=== PATIENT | female | born 1945 | race Caucasian/White ===

== ENCOUNTER 2019-09-01 13:29 | Inpatient (IN) | payer MEDICARE, MEDICAID, SELFPAY ==
--- NOTE | ~2019-09-01 | XR_ITS ---
EXAMINATION: XR abdomen NG/feed tube insert DATE: 09/03/2019 06:37 INDICATION: Nasogastric tube placement. TECHNIQUE: An upright view of the abdomen was obtained. COMPARISON: CT abdomen and pelvis 09/01/2019 FINDINGS: The lower abdomen is excluded. There are mildly dilated loops of small bowel. The nasogastr ic tube tip is in the stomach. IMPRESSION: 1. Nasogastric tube tip in the stomach. 2. Mildly dilated small bowel, likely adynamic ileus. Reviewed, dictated and finalized at location A.
--- NOTE | ~2019-09-01 | XR_ITS ---
EXAMINATION: XR chest ET placement DATE: 09/03/2019 06:37 INDICATION: Intubation. TECHNIQUE: A single frontal view of the chest was obtained. COMPARISON: Chest 2 views 09/01/2019, chest CT 09/01/2019 FINDINGS: The patient is rotated to her left. There is a right perihilar mass. No pleural effusion or pneumothorax. Cardiomegaly is noted. There is a prominent left paracardial fat pad. The endotracheal tube tip is 4.2 cm above the kaya. The nasogastric tube tip is in the stomach. IMPRESSION: 1. Right perihilar mass, consistent with primary bronchogenic carcinoma. 2. Cardiomegaly. Reviewed, dictated and finalized at location A.
--- NOTE | ~2019-09-01 | CT_ITS ---
EXAMINATION: CT chest wo con DATE: 09/01/2019 18:50 INDICATION: Metastatic cancer TECHNIQUE: Computed tomography (CT) of the chest was performed without intravenous contrast. The dose -length product was 559.30 mGy-cm. Automated exposure control and iterative reconstruction technique were employed. COMPARISON: CT dated 09/01/2019 FINDINGS: There is mediastinal and right hilar lymphadenopathy. For instance right paratracheal lymph node measures 2.4 cm. There is scattered right pleural nodularity. No significant pleural or pericar dial effusion. There is a left adrenal mass. There is emphysema. There is a lobulated right lower lob e mass measuring 6 cm transverse x6.9 cm AP x3.8 cm craniocaudal, most likely primary bronchogenic ca rcinoma. There are several adjacent satellite nodules with rhonchal vascular nodularity. The previous ly described liver masses are not well-demonstrated without contrast, although there is nodularity to the liver surface. IMPRESSION: 1. Lobulated 6.9 cm right lower lobe mass, compatible with bronchogenic carcinoma until proven otherw ise. There are probable metastases to the mediastinum, right hilum, right pleural surface, liver, lef t adrenal gland as well as possible local spread of tumor. Reviewed, dictated and finalized at location A. IMPRESSION: 1. Lobulated 6.9 cm right lower lobe mass, compatible with bronchogenic carcino ma until proven otherwise. There are probable metastases to the mediastinum, ri ght hilum, right pleural surface, liver, left adrenal gland as well as possible local spread of tumor.
--- NOTE | ~2019-09-01 | XR_ITS ---
XR chest 2V 09/01/2019 17:43 Indication: Metastatic disease. History of COPD. Dyspnea. Procedure: AP and lateral views of the chest Comparison: 03/25/2012 Findings: There is consolidation in the right perihilar region as well as the retrocardiac space. Car diomegaly. No pleural effusion or pneumothorax. No acute osseous abnormality. There is atherosclerosi s. Impression: 1: Opacification of the right perihilar and left basilar locations which may represent atelectasis, s carring and/or pneumonia. Reviewed, dictated and finalized at location A. Impression: 1: Opacification of the right perihilar and left basilar locations which may re present atelectasis, scarring and/or pneumonia.
--- NOTE | ~2019-09-01 | CT_ITS ---
EXAMINATION: CT brain wo con DATE: 09/01/2019 16:46 INDICATION: Left facial numbness. TECHNIQUE: Computed tomography (CT) of the head was performed without intravenous contrast. The mA wa s adjusted according to patient size. Iterative reconstruction technique was employed. The dose-lengt h product was 605.33 mGy-cm. COMPARISON: None FINDINGS: There is no intracranial hemorrhage, acute infarction, or abnormal intracranial mass lesion . There is an old lacunar infarct in right caudate nucleus. There are scattered areas of low attenuat ion in the cerebral white matter, which is within normal limits for the patient's age. The ventricles are normal in size. There are likely changes of ocular lens replacement surgeries. There is mild muc osal thickening in the paranasal sinuses. There is sclerosis of the higgin[place] of the left frontal sinus, consistent with chronic sinusitis. The mastoid air cells are normal. IMPRESSION: 1. Old lacunar infarct in right caudate nucleus. Reviewed, dictated and finalized at location A.
--- NOTE | ~2019-09-01 | CT_ITS ---
EXAMINATION: CT abdomen pelvis w con DATE: 09/01/2019 16:47 INDICATION: Abdominal pain. TECHNIQUE: Computed tomography (CT) of the abdomen and pelvis was performed with 100 mL Omnipaque 350 intravenous contrast. Automated exposure control and iterative reconstruction technique were employe d. The dose-length product was 1406.67 mGy-cm. COMPARISON: None. FINDINGS: The visualized portions of the lung bases demonstrate mild atelectasis. There is nodular pl eural thickening in right hemithorax, consistent with metastatic disease. No pleural effusion. Cardio megaly is noted. There are coronary artery calcifications. No pericardial effusion. Right hilar lymph adenopathy is noted, consistent with metastatic disease. There are innumerable masses throughout the liver, consistent with metastatic disease. Calcifications in the liver consistent with old granulomat ous disease. The spleen is normal. The gallbladder is absent. There are 2 cystic lesions in the body of the pancreas with the larger measuring 1.5 cm, probably benign. There are masses in the adrenal gl ands measuring up to 2.3 cm on the left. 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 There is cortical thinning of the kidneys. There are masses in the kidneys jessica suring soft tissue attenuation measuring up to 1.7 cm on right kidney. The endometrial complex is thi ckened to 1.7 cm. There are fibroids in the uterus measuring up to 1.8 cm. There are no dilated loops of bowel. The appendix is not visualized. There is mild mesenteric and periportal lymphadenopathy. T here are scattered subcutaneous mass of the body wall measuring up to 16 x 11 mm in right flank. Ther e is moderate lumbar spondylosis. IMPRESSION: 1. Innumerable liver masses, right pleural nodularity, right hilar lymphadenopathy, abdominal lymphad enopathy, and body wall masses, consistent with metastatic disease. Ultrasound-guided core needle bio psy of a liver mass is recommended. 2. Masses in the kidneys, which may be hemorrhagic cysts and/or metastatic disease. 3. Adrenal masses, which may be adenomas and/or metastatic disease. 4. Thickening of the endometrial complex suspicious for endometrial carcinoma. Reviewed, dictated and finalized at location A. IMPRESSION: 1. Innumerable liver masses, right pleural nodularity, right hilar lymphadenopa thy, abdominal lymphadenopathy, and body wall masses, consistent with metastati c disease. Ultrasound-guided core needle biopsy of a liver mass is recommended. 2. Masses in the kidneys, which may be hemorrhagic cysts and/or metastatic dise ase. 3. Adrenal masses, which may be adenomas and/or metastatic disease. 4. Thickening of the endometrial complex suspicious for endometrial carcinoma.
--- NOTE | ~2019-09-01 | US_ITS ---
EXAMINATION: US biopsy liver DATE: 09/02/2019 14:24 INDICATION: Innumerable hepatic nodules consistent with metastatic disease. TECHNIQUE: The procedure including the risks and benefits was discussed with the patient. Risks discu ssed included bleeding and infection. The patient understood the risks and agreed to proceed. The sk in overlying the left hepatic lobe was prepped and draped in usual sterile fashion. Anesthetic was a dministered with 1% lidocaine subcutaneously. An 18 gauge core biopsy needle was advanced under cont inuous ultrasound observation to the lesion of interest. 4 core biopsy specimens were obtained. The needle was removed and the entry site was cleaned and dressed. Post procedure ultrasound demonstrat ed no hemorrhage. FINDINGS: Ultrasound images demonstrate diffuse heterogeneous hepatic echogenicity with nodular surfa ce contour. Discrete nodules were unable to be identified. Subsequent images demonstrate biopsy needl es advanced into segment IVb of the liver where there was essentially confluent disease on the prior CT. IMPRESSION: 1. Successful Ultrasound-guided biopsy of the region of essentially confluent metastatic disease in s egment IVb of the liver. Reviewed, dictated and finalized at location A. IMPRESSION: 1. Successful Ultrasound-guided biopsy of the region of essentially confluent m etastatic disease in segment IVb of the liver.
[2019-09-01 14:52] VITALS: BP 112/60; PULSE 112; RESP 18; TEMP 36.8; O2SAT 86
--- NOTE | 2019-09-01 15:07 | PC.NURSE ---
ptarrived [facility] with a BG of 48 amp d50 given as ordered by dr penaloza
[2019-09-01] MEDS: DEXTROSE 50% 25 GM/50 ML SYRINGE (15:08)
[2019-09-01 15:22] LABS: Hematocrit 51.6 % (37.0-47.0); Hemoglobin 17.4 g/dL (12.0-15.0); Immature Platelet Fraction Pct 8.6 % (0.9-11.2); Mean Corpuscular HGB Conc 33.7 g/dl (32-36); Mean Corpuscular Hemoglobin 31.8 pg (26-34); Mean Corpuscular Volume 94.3 fl (80-100); Mean Platelet Volume 11.8 fl (7.4-10.4); Platelet Count Result 121 k/mm3 (150-375); Red Blood Count 5.47 M/mm3 (4.2-5.4); Red Cell Distribution Width 19.5 % (11.5-14.5); White Blood Count 16.9 K/mm3 (4.5-10.0)
--- NOTE | 2019-09-01 15:29 | ED.ABDPAIN ---
HPI - Abdominal Pain General Chief Complaint: Abdominal Pain Stated Complaint: my feet went numb/bg 50 Time Seen by Provider: 09/01/19 15:28 Source: patient and EMS Mode of arrival: EMS Limitations: no limitations History of Present Illness HPI narrative: Patient is a 73-year-old female with a history of diabetes, peripheral neuropathy, A. fib, COPD, on 2 L nasal cannula oxygen who presents for evaluation of abdominal pain and foot numbness. Patient reports abdominal pain over the past 24 hours, most in the upper and lower abdomen, with some mild abdominal distention. Patient reports associated constipation. She denies nausea or vomiting but reports decreased oral intake. She states that she has been feeling more weak than normal as well. Patient denies fever, chills or chest pain. Patient also reports foot numbness today around noon that resolved on its own after about 30 minutes. Patient denied any foot pain at that time. She also reported left-sided facial numbness which has now resolved. Patient denies any current numbness. Patient has been compliant with her medications. Initially patient was hypoglycemic with a blood glucose of 50 per EMS was given an amp of D50, repeat here is 99. Patient reports urinary frequency without dysuria. Related Data Home Medications Medication Instructions Recorded Confirmed alprazolam TID 09/01/19 apixaban [Eliquis] mg DAILY 09/01/19 diltiazem HCl PO DAILY 09/01/19 duloxetine mg PO DAILY 09/01/19 furosemide DAILY 09/01/19 insulin aspart U-100 [Novolog 40 unit SUBCUT HS 09/01/19 09/01/19 Flexpen U-100 Insulin] insulin detemir U-100 [Levemir See Rx Instructions .ROUTE .COMPLEX 09/01/19 09/01/19 FlexTouch U-100 Insuln] levothyroxine DAILY 09/01/19 potassium chloride meq PO DAILY 09/01/19 tramadol mg PRN 09/01/19 Allergies Allergy/AdvReac Type Severity Reaction Status Date / Time levofloxacin AdvReac Intermediate PRURITIS Verified 09/01/19 15:43 Review of Systems Review of Systems: Narrative: CONSTITUTIONAL: Denies fever, chills, or sweats. EYES: Denies visual changes, redness, or discharge. ENT: Denies rhinorrhea, congestion, sore throat, or otalgia. CARDIOVASCULAR: Denies chest pain, palpitations, or edema. RESPIRATORY: Denies cough or dyspnea. GASTROINTESTINAL: Reports abdominal pain, reports constipation GENITOURINARY: Denies dysuria or hematuria. Reports urinary frequency. SKIN: Denies rash or itching. MUSCULOSKELETAL: Denies back pain, joint pain, or myalgia. NEUROLOGIC: Denies headache, reports left-sided facial numbness and bilateral foot numbness which is now resolved PMFSH Past Medical History Medical History Anxiety Atrial fibrillation COPD (chronic obstructive pulmonary disease) Hyperlipidemia Hypertension Hyperthyroidism Osteoporosis Peripheral neuropathy Type 2 diabetes mellitus Surgical History Surgical History Hx of cholecystectomy Social History Social History (Updated 09/01/19 @ 15:43 by Hailee Thurston MD) Smoking status: Never smoker Alcohol intake: never Substance use: never Gender identity (if verbalized by the patient): Female Exam Narrative: Exam Narrative: GENERAL: Awake, alert, conversant HEAD: Normocephalic, atraumatic. EYES: PERRLA and EOMI. ENT: Nares clear, no rhinorrhea or epistaxis. Mucous membranes moist. NECK: Supple. CHEST: No respiratory distress, breathing even and non labored HEART: Regular rate, sinus rhythm ABDOMEN: Mildly distended, tender in periumbilical area and suprapubic area, no guarding, nonrigid, no rebound EXTREMITIES: Normal range of motion. No edema. SKIN: Warm, dry, no rash. NEURO:No focal deficits. Alert and oriented x3. Finger to nose intact bilaterally. EOMs intact without nystagmus. No facial droop/asymmetry noted bilaterally. Grimace intact. Intact sensation in face. Hearing in
[2019-09-01 15:38] LABS: Glucose Point of Care 99 (65-105)
[2019-09-01 15:52] LABS: Anisocytosis 2+ (NORMAL); Band Neutrophils Percent 2 % (0-6); Eosinophils Absolute Manual 0.16 K/mm3 (0.02-0.5); Eosinophils Percent Manual 1 % (0-4); Lymphocytes Absolute Manual 4.39 K/mm3 (1.1-4.5); Monocytes Absolute Manual 1.35 K/mm3 (0.1-0.90); Monocytes Percent Manual 8 % (3-9); Neutrophils Absolute Manual 10.98 K/mm3 (1.7-7.2); Neutrophils Percent Manual 63 % (46-73); Nucleated Red Blood Cells 1 %; Total Cells Counted 100
[2019-09-01] MEDS: ONDANSETRON INJ 4 MG/2 ML VIAL IV PUSH (16:03)
[2019-09-01] MEDS: MORPHINE SULFATE 4 MG/ML INJ IV PUSH ×3 (16:03→22:30)
[2019-09-01] MEDS: SODIUM CHLORIDE 0.9% IV 1,000 ML 999 ML IV CONT (16:04)
[2019-09-01 16:05] LABS: Albumin Level 3.7 g/dL (3.5-5.1); Alkaline Phosphatase 697 U/L (38-126); Aspartate Amino Transferase 522 U/L (14-36); Bilirubin,Total 2.8 mg/dL (0.2-1.3); Blood Urea Nitrogen 28 mg/dL (7-17); Calcium 8.7 mg/dL (8.4-10.2); Carbon Dioxide 30 mmol/L (22-30); Chloride 98 mmol/L (98-107); Estimated CRCL calculation 43 ml/min; Estimated Glomerular Filt Rate 40; Glucose 91 mg/dL (65-105); Lipase 407 U/L (23-300); Potassium 3.1 mmol/L (3.4-5.0); Sodium 140 mmol/L (137-145)
[2019-09-01 16:15] LABS: Alanine Aminotransferase 121 U/L (4-35)
[2019-09-01 16:43] LABS: Lactic Acid Reflex 4.5 mmol/L (0.7-2.1)
[2019-09-01 17:07] VITALS: BP 159/66; PULSE 100; RESP 15; O2SAT 97
--- NOTE | 2019-09-01 18:00 | PM.IMHP ---
H&P: HPI History of Present Illness Chief complaint: Abdominal pain and several other complaints. <Aniya Sousa PA-C - Last Filed: 09/01/19 21:37> Narrative: Rachel Parker is a very pleasant 73-year-old female with insulin-dependent type 2 diabetes mellitus, hypothyroidism, paroxysmal atrial fibrillation on long-term anticoagulation, obstructive sleep apnea on oxygen at nighttime, chronic obstructive pulmonary disease, and hypertension who presented to the emergency department earlier this afternoon via EMS from home for evaluation of abdominal pain and several other complaints. Over the past several weeks or so her appetite has been very poor ?and I just do not feel like eating.? She has also had mild abdominal distension and periumbilical discomfort that she is not able to describe except for ?sometimes it just hurts.? The discomfort seems to be intermittent and she sees no pattern as to when it occurs. Initially she thought the discomfort was due to constipation however despite taking senna S she has not had a normal bowel movement for a week or so. She passed a small amount of stool this morning, which was otherwise unremarkable. Due to her poor oral intake, she has felt progressively more weak, notes lightheadedness/dizziness upon standing, and also reports increasing episodes of hypoglycemia. In fact this morning she reports tingling in her feet and the left side of her face and lips, which she thought was likely due to neuropathy and hypoglycemia however the paresthesias in her lips have remained. A CT of the abdomen and pelvis done for further evaluation showed findings suggestive of metastatic cancer. Subsequent chest CT showed large a right lower lobe mass. Her last colonoscopy was approximately 4 years ago and she does report having 1 polyp removed at that time. She has never had an abnormal mammogram and she has not noticed any breast lumps. No vaginal bleeding. She has not noticed any blood in the stool. At the time my evaluation, she reports feeling a bit better after receiving morphine, and she has no other complaints. She has no personal or family history of cancer. She denies fever, chills, and sweats. She is unaware of any change in weight. <Aniya Sousa PA-C - Last Filed: 09/01/19 21:37> Review of Systems Review of Systems: Narrative: Twelve systems were reviewed with pertinent positives and negatives as per HPI. No fever, chills, or sweats. She denies headache. No vertigo. She denies focal weakness. Her energy has been poor and she is been much more fatigued than usual and has been sleeping more. In fact she has not taken her morning meds in tell noon over the past couple of days due to sleeping. She denies chest pain and shortness of breath. No cough. No orthopnea, PND, or significant lower extremity edema. She wears oxygen at nighttime as she is intolerant to CPAP for her sleep apnea. It does not sound as though she wears oxygen during the day ever. No vomiting or dysuria. Typically her diabetes is fairly well controlled however she has been having episodes of hypoglycemia. She does have neuropathy symptoms in her feet. She denies blurry vision, polydipsia, and polyuria. Except as documented, all other systems were reviewed and are negative. <Aniya Souas PA-C - Last Filed: 09/01/19 21:37> [facility] Past Medical History Medical History: Medical History (Updated 09/01/19 @ 21:33 by Aniya Sousa PA-C) Anxiety Bladder stones Chronic kidney disease, stage 3 Baseline creatinine is around 1.30. Chronic obstructive pulmonary disease Diabetic peripheral neuropathy Hyperlipidemia Hypertension Hyperthyroidism Status post radioactive iodine ablation in 1994. Hypothyroidism Post GAINES in 1994 for hyper thyroidism. Insulin dependent type 2 diabetes mellitus Obstructive sleep apnea Intolerant to CPAP. She wears oxygen at nighttime. Osteoporosis Paroxysmal atrial fibrill
[2019-09-01 18:17] LABS: INR 1.7; Prothrombin Time 19.6 Seconds (11.1-14.7)
[2019-09-01 18:18] LABS: Partial Thromboplastin Time 29.5 SECONDS (22.3-36.8)
[2019-09-01 18:28] LABS: Glucose Point of Care 165 (65-105)
[2019-09-01 18:31] LABS: Add Urine Microscopic? YES; Appearance Urine Clear (Clear); Bilirubin Urine Negative (Negative); Blood Urine Negative (Negative); Color Urine Yellow (Yellow); Glucose Urine UA Negative (Negative); Ketones Urine Negative (Negative); Leukocyte Esterase Ur Negative LEU/UL (Negative); Mucus Urine Rare /lpf; Nitrate Urine Negative (Negative); Protein Urine 2+ mg/dL (Negative); RBC Urine 0-2 /hpf (0-2); Squamous Epithelial Cell Urine Rare /hpf (Few); WBC Urine 0-3 /hpf
[2019-09-01 18:34] LABS: Specific Grav Ur 1.039 (1.001-1.035)
[2019-09-01 19:27] LABS: Reflex Lactic Acid Yes or No Add Lactic
[2019-09-01 19:30] VITALS: BP 158/62; PULSE 108; RESP 18; O2SAT 96
[2019-09-01 20:00] VITALS: BP 160/63; PULSE 115; PULSE 96; RESP 18; O2SAT 96
--- NOTE | 2019-09-01 20:15 | PC.NURSE ---
Got report from ED nurse and verified that ED physician did not want to give the patient anymore boluses with patient lactic still being 3.0. RN said ED MD did not want anymore boluses.
[2019-09-01] MEDS: SODIUM CHLORIDE 0.9% IV 1,000 ML 125 ML IV CONT (20:21)
--- NOTE | 2019-09-01 20:30 | ADMGEN ---
This patient, Rachel Parker, was admitted to Medical Room 349-01. Patient/family oriented to hospital policies and general routines including ID bracelet, bed and alarms, visiting hours, pain management, procedures, bathroom and other care routines, personal items, smoking policy, room service/diet, and visiting hours. Valuables list has been completed. Information on how to activate the Rapid Response Team has been discussed. Patient/Family are encouraged to report perceived risks to care and to ask questions if they do not understand what they are told or what they should do.
[2019-09-01 20:46] VITALS: BP 127/55; PULSE 106; RESP 11; TEMP 36.6; O2SAT 92
[2019-09-01 20:50] VITALS: BMI 40.3
[2019-09-01 22:23] LABS: Hemoglobin A1C 7.1 % (<5.7)
[2019-09-01 22:27] VITALS: RESP 15
[2019-09-01 22:39] LABS: Glucose Point of Care 264 (65-105)
[2019-09-01] MEDS: POTASSIUM CHLORIDE 20 MEQ TABLET PO (23:02)
[2019-09-01 23:16] LABS: Free T4 Free Thyroxine Reflex 1.24 ng/dL (0.78-2.19)
[2019-09-01] MEDS: traMADol HCL 50 MG TABLET PO (23:34)
[2019-09-02] VITALS (13 sets, daily range): BP systolic 86–144; BP diastolic 39–76; PULSE 92–114; RESP 12–22; TEMP 36.2–36.4; O2SAT 90–92
[2019-09-02 02:54] LABS: Total Triiodothyronine (T3) 0.52 NG/ML (0.97-1.69)
[2019-09-02] MEDS: MORPHINE SULFATE 4 MG/ML INJ IV PUSH ×4 (04:46→23:20)
[2019-09-02] MEDS: LEVOTHYROXINE SODIUM 125 MCG TABLET PO (05:30)
[2019-09-02 06:27] LABS: Basophils Percent Auto 0.1 % (0.2-1.2); Eosinophils Absolute Auto 0.1 K/mm3 (0-0.3); Eosinophils Percent Auto 0.3 % (0-4.4); Hematocrit 46.5 % (37.0-47.0); Hemoglobin 15.1 g/dL (12.0-15.0); Immature Granulocyte Absolute 1.09 K/mm3 (0.00-0.031); Immature Granulocyte Percent A 5.5 % (0-0.5); Lymphocytes Absolute Auto 1.42 K/mm3 (0.9-3.2); Lymphocytes Percent Auto 7.1 % (18.3-44.2); Mean Corpuscular HGB Conc 32.5 g/dl (32-36); Mean Corpuscular Hemoglobin 31.8 pg (26-34); Mean Corpuscular Volume 97.9 fl (80-100); Mean Platelet Volume 11.8 fl (7.4-10.4); Monocytes Absolute Auto 1.5 K/mm3 (0.1-0.6); Monocytes Percent Auto 7.7 % (2.6-8.5); Neutrophils Absolute Auto 15.8 K/mm3 (1.3-6.7); Neutrophils Percent Auto 79.3 % (45.5-73.1); Nucleated Red Blood Cells Perc 4.8 % (0.0-0.2); Platelet Count Result 92 k/mm3 (150-375); Red Blood Count 4.75 M/mm3 (4.2-5.4); Red Cell Distribution Width 19.9 % (11.5-14.5)
[2019-09-02 06:51] LABS: Alanine Aminotransferase 417 U/L (4-35); Alkaline Phosphatase 519 U/L (38-126); Blood Urea Nitrogen 35 mg/dL (7-17); Calcium 7.8 mg/dL (8.4-10.2); Carbon Dioxide 20 mmol/L (22-30); Chloride 99 mmol/L (98-107); Estimated CRCL calculation 36 ml/min; Estimated Glomerular Filt Rate 34; Glucose 219 mg/dL (65-105); Magnesium 2.2 mg/dL (1.6-2.3); Potassium 4.2 mmol/L (3.4-5.0); Sodium 135 mmol/L (137-145)
[2019-09-02 06:55] LABS: Anisocytosis 1+ (NORMAL); Platelet Estimate Decreased (Adequate)
[2019-09-02 07:05] LABS: Glucose Point of Care 90 (65-105)
[2019-09-02 07:05] LABS: Glucose Point of Care 48 (65-105)
--- NOTE | 2019-09-02 07:08 | PC.NURSE ---
intake before mid noc
[2019-09-02 07:34] LABS: Glucose Point of Care 228 (65-105)
[2019-09-02 07:36] LABS: Aspartate Amino Transferase 1151 U/L (14-36)
[2019-09-02] MEDS: SODIUM CHLORIDE 0.9% IV 1,000 ML 100 ML IV CONT (08:55)
[2019-09-02] MEDS: DULoxetine HCL 60 MG CAPSULE.DR PO (08:57)
[2019-09-02 11:42] LABS: Glucose Point of Care 194 (65-105)
[2019-09-02 13:49] LABS: SARS-CoV-2 RNA PCR Negative
[2019-09-02 16:22] LABS: Glucose Point of Care 153 (65-105)
--- NOTE | 2019-09-02 16:56 | PM.IMPN ---
Progress Note: A&P Assessment and Plan (1) Right lower lobe lung mass: Code(s): R91.8 - Other nonspecific abnormal finding of lung field Status: Acute Assessment and Plan: Chest CT shows a lobulated 6.9 centimeter right lower lobe mass compatible with bronchogenic carcinoma. CT of the abdomen and pelvis shows findings consistent with metastatic disease to the liver, pleura, lymph nodes, and left adrenal gland. There is also thickening of the endometrial complex suspicious for endometrial CA. Interventional radiologist to obtain liver biopsy for diagnosis. Her last dose of apixaban was 08/31/2019 at 12:00. Dr. Daniel Tovar was consulted by the ED physician, and his input is appreciated. 09/02/19 16:56 Patient is 73-year-old female presented emergency department with multiple complaints most persisting complaint is abdominal pain and shortness of breath CT scan of the chest showed 1. Lobulated 6.9 cm right lower lobe mass, compatible with bronchogenic carcinoma until proven otherwise. There are probable metastases to the mediastinum, right hilum, right pleural surface, liver, left adrenal gland as well as possible local spread of tumor. And CT scan of abdomen showed: 1. Innumerable liver masses, right pleural nodularity, right hilar lymphadenopathy, abdominal lymphadenopathy, and body wall masses, consistent with metastatic disease. Ultrasound-guided core needle biopsy of a liver mass is recommended. 2. Masses in the kidneys, which may be hemorrhagic cysts and/or metastatic disease. 3. Adrenal masses, which may be adenomas and/or metastatic disease. 4. Thickening of the endometrial complex suspicious for endometrial carcinoma. Also patient has a elevated liver enzymes and patient had ultrasound-guided liver biopsy, concern the patient infection decide malignancy patient is being treated vancomycin Zosyn and azithromycin patient seen by oncologist and further recommendation to follow, continue to monitor the patient and hydrate (2) Lactic acidosis: Code(s): E87.2 - Acidosis Status: Acute Assessment and Plan: She technically meets criteria for sepsis with leukocytosis and elevated lactic acid level, however she gives no history that would point to an obvious source of infection. Thus I am not certain she actually has sepsis. Lactic acid level could be elevated due to poor clearance given metastatic disease of the liver. Chest x-ray was read as possible atelectasis versus pneumonia however subsequent chest CT does not mention such. For now I think I will continue azithromycin and ceftriaxone, however. (3) Transaminitis: Code(s): R74.0 - Nonspecific elevation of levels of transaminase and lactic acid dehydrogenase [LDH] Status: Acute Assessment and Plan: Presumably due to metastatic disease. (4) Dehydration: Code(s): E86.0 - Dehydration Status: Acute Assessment and Plan: Secondary to poor oral intake over the last several weeks. She has subsequently been started on IV fluid rehydration. (5) Obstructive sleep apnea: Code(s): G47.33 - Obstructive sleep apnea (adult) (pediatric) Status: Acute Assessment and Plan: She is intolerant to PAP therapy and instead wears oxygen at nighttime. (6) Chronic kidney disease, stage 3: Code(s): N18.3 - Chronic kidney disease, stage 3 (moderate) Status: Acute Assessment and Plan: Creatinine is stable on review of previous labs. (7) Insulin dependent type 2 diabetes mellitus: Code(s): E11.9 - Type 2 diabetes mellitus without complications; Z79.4 - termite exterminator (current) u
[2019-09-02] MEDS: traMADol HCL 50 MG TABLET PO (20:09)
[2019-09-02 21:54] LABS: Glucose Point of Care 158 (65-105)
[2019-09-03] VITALS (8 sets, daily range): BP systolic 89–107; BP diastolic 25–59; PULSE 60–93; RESP 12–22; TEMP 35.8–36.3; O2SAT 80–100
--- NOTE | 2019-09-03 | PC.NURSE ---
Pt was not sitting still for bp/automatic cuff was unable to get a good read. When done manually, pt kept groaning and we were unable to hear it clearly. Pt asymptomatic and morphine was not administered in case bp was actually low.
[2019-09-03] MEDS: SODIUM CHLORIDE 0.9% IV 1,000 ML 100 ML IV CONT (02:47)
[2019-09-03 06:00] LABS: Glucose Point of Care 29 (65-105)
[2019-09-03 06:00] LABS: Glucose Point of Care 216 (65-105)
[2019-09-03 06:00] LABS: Glucose Point of Care 138 (65-105)
[2019-09-03 06:01] LABS: Hematocrit 47.4 % (37.0-47.0); Hemoglobin 13.8 g/dL (12.0-15.0); Immature Platelet Fraction Pct 10.5 % (0.9-11.2); Mean Corpuscular HGB Conc 29.1 g/dl (32-36); Mean Platelet Volume 11.9 fl (7.4-10.4); Platelet Count Result 91 k/mm3 (150-375); Red Blood Count 4.31 M/mm3 (4.2-5.4); Red Cell Distribution Width 20.3 % (11.5-14.5); White Blood Count 24.5 K/mm3 (4.5-10.0)
--- NOTE | 2019-09-03 06:08 | PC.NURSE ---
Found pt ashy, gasping for air, and mottled looking. supervisor frame sample and pattern was in hallway and was called in. Rapid response called as a pulse was still present.
[2019-09-03 06:16] LABS: Albumin Level 2.8 g/dL (3.5-5.1); Alkaline Phosphatase 442 U/L (38-126); Bilirubin,Total 2.4 mg/dL (0.2-1.3); Blood Urea Nitrogen 41 mg/dL (7-17); Calcium 7.9 mg/dL (8.4-10.2); Carbon Dioxide 7 mmol/L (22-30); Chloride 99 mmol/L (98-107); Glucose 35 mg/dL (65-105); Potassium 5.8 mmol/L (3.4-5.0); Sodium 138 mmol/L (137-145)
[2019-09-03 06:22] LABS: Glucose Point of Care 108 (65-105)
[2019-09-03 06:35] LABS: Estimated CRCL calculation 20 ml/min; Estimated Glomerular Filt Rate 17
[2019-09-03 06:38] LABS: pH ABG 6.874 (7.350-7.450)
[2019-09-03 06:39] LABS: Base Excess ABG -27.2 mEq/l (+/-2.0); HCO3 ABG 5.6 mEq/l (22.0-26.0); Oxygen Saturation ABG 97.7 % (95.0-100.0); PCO2 ABG 31.2 mmHg (35.0-45.0)
[2019-09-03 06:40] LABS: Device VENTILATOR; Fractional Inspired Oxygen 100 %; PO2 FiO2 Ratio Arterial Blood 1.69 %; Site Drawn RIGHT FEMORAL; Total Hemoglobin 14.2 g/dL (12.0-18.0)
[2019-09-03 06:41] LABS: Alveolar/Arterial O2 Gradient 512.8 mmHg; Carboxyhemoglobin 0.1 % THb (0-2.0); Methemoglobin ABG 0.6 %THb (0-1.5); Oxygen Content ABG 19.7 %vol (16.0-22.0); Oxyhemoglobin 97.2 % THb (90.0-100.0); Reduced Hemoglobin 2.1 %THb (0-5.0)
--- NOTE | 2019-09-03 06:41 | PDCODEBLUE ---
Code Blue Note Code Blue Note Time Arrived at Code Blue: 05:42 Initial Rhythm on Arrival: AFib with a rate of 50-60 Airway Management: Pt intubated during resuscitation Chest Compressions: No compressions given Result of Code Blue: Pt transferred to ICU Cardiac Rhythm Post Code: Bradycardic atrial fibrillation Code Blue Summary: A rapid response had been called around 05:35. The patient was unresponsive and had a glucose of 35. She received an amp of D50 with improvement in her glucose up to 216. Nursing staff initially could not feel pulse and subsequently a code blue was called. By the time I arrived at the patient's bedside they could feel a femoral pulse. Her systolic blood pressures were in the 110s. Despite correction of the patient's glucoses she remained unresponsive. She was cyanotic with cool extremities. She had agonal respirations. I subsequently intubated the patient on the medical floor with a size 3 Jasso blade and a 7.0 ET tube ET tube was measuring 26 cm at the lip. The patient did not require sedation for intubation. Placement was confirmed with chest x-ray, equal breath sounds, end-tidal CO2 monitor, and vapor in the tube. There are no breath sounds over the epigastrium. The patient was subsequently transferred to the ICU. On arrival to the ICU patient's blood pressure was low in the mid 70s systolic. Subsequently a 1 L bolus was initiated. The patient was initiated on vent settings of tidal volume 400 peep of 5 rate of 22 with 100% FiO2. I obtained a femoral arterial stick for ABG. ABG demonstrated overwhelming metabolic acidosis. ABG was obtained approximately 20 minutes after intubation demonstrated pH 6.87 CO2 of 31 PO2 of 169 bicarb of 5.6. An order was given for 2 amps of sodium bicarb push. By that point the patient's sons had arrived to the hospital. I had talked to the sons regarding the patient's condition with her likely widely metastatic bronchogenic carcinoma and overwhelming metabolic acidosis. They were aware that the patient desired to be a DNR and not pursue cardiac resuscitation or intubation. Despite IV fluid bolus patient's blood pressure remained hypotensive in fact dropped to the 50s. The patient was developing unstable bradycardia with heart rates as low as 40. Nursing staff was chest administering bicarb pushes as I arrived at the bedside with the patient's family. The patient's son's agreed that they would not proceed with cardiac resuscitation if the patient's heart were to stop. They were unsure has to whether not they would want to terminally extubate. At this point they would like the patient to be made comfortable and IV sedation with fentanyl and Versed have been initiated despite hypotension. After bicarb pushes the patient's heart rate did improved to 80s briefly but her heart rate has already started to drop into the 50s. The patient's blood pressure did briefly improved to the low 70s systolic but again her blood pressure is now dropping again. Family has chosen to proceed with comfort measures only at this point. The patient's condition was discussed with the physical therapy instructor at the time of transfer to the ICU but this was prior to labs having returned. 75 minutes was spent in critical care activities.
[2019-09-03 06:42] LABS: Arterial Blood Gas PEEP 5 cmH2O; Arterial Blood Gas Tidal Volume 400 ml; Arterial Blood Gas Vent Mode CMV; Arterial Blood Gas Ventilator rate 22 /MIN
[2019-09-03] MEDS: SODIUM BICARBONATE 8.4% 50 MEQ/50 ML VIAL 100 MEQ IV PUSH (06:50)
--- NOTE | 2019-09-03 07:00 | PM.EVENT ---
Event Note Event Note Event Note: 73-year-old female with past medical history of diabetes and atrial fibrillation was admitted on with chief complaint of abdominal pain and on workup was found to be having bronchogenic carcinoma of lung with metastasis. Patient was being evaluated on the floor and plan was to obtain a biopsy to confirm the diagnosis. Early this morning around 530 patient found to be unresponsive in her room and workup showed the patient was hypoglycemic. Patient was given dextrose with no improved she was hypertensive and bradycardic. Patient was intubated by overnight physician and transferred to ICU. ABG showed severe acidosis and patient was given IV bicarbonate push. Patient never lost her pulse or needed CPR. Dr. Jarquin spoke to patient's 2 children and they did not want any aggressive intervention or life support and they chose make patient DNR and comfort care. When arrived patient was still intubated, bradycardic and hypotensive. I reviewed patient's labs, imaging and physician notes. I also spoke to and discussed case with Dr. jarquin. I spoke to both sons again and explained the current status answered the questions. They confirmed to me they request as per patient's wishes of keeping her comfortable with no further resuscitation or aggressive intervention and letting the nature takes its course. I offered them option of extubating her and they agreed but before this could be done patient went into asystole. As per patient's wishes she was not resuscitated. I examined the patient and she had no heart sounds or pulses in either of carotid or femoral arteries. Patient was pronounced at 7:37 a.m.. Patient's both sons were at bedside at that time. Total time spent in critical care 30 minutes. Time of encounter 7:00 a.m.
--- NOTE | 2019-09-03 07:03 | WPDPROCEDUR ---
Procedures Intubation Intubation Date: 09/03/19 Intubation Time: 05:50 Consent: Intubation was performed emergently. A pre-procedural Time-Out was completed immediately before starting the procedure and confirmed: Patient Identification, Site, Procedure, Patient Position and the Availability of Requisite Equipment: No Sedative: none Laryngoscope: Jasso (Size 3) ET tube size: cuffed Tube secured depth (cm): 26 Tube secured location: lips Tube placement confirmation: visualized tube passing through cords, equal breath sounds bilaterally, no breath sounds over epigastrium and confirmation by capnometry Patient tolerated procedure: well Additional comments: Chest x-ray reviewed ET tube appropriately positioned. Radiologic interpretation pending.
[2019-09-03 07:04] LABS: Alanine Aminotransferase 3145 U/L (4-35)
[2019-09-03 07:13] LABS: Aspartate Amino Transferase > 7500 U/L (14-36)
[2019-09-03 07:17] LABS: Band Neutrophils Percent 6 % (0-6); Metamyelocytes Percent 1 %; Monocytes Absolute Manual 1.47 K/mm3 (0.1-0.90); Monocytes Percent Manual 6 % (3-9); Neutrophils Absolute Manual 17.88 K/mm3 (1.7-7.2); Neutrophils Percent Manual 67 % (46-73); Nucleated Red Blood Cells 7 %; Platelet Estimate Decreased (Adequate); Total Cells Counted 100
[2019-09-03 07:18] LABS: Anisocytosis 1+ (NORMAL)
--- NOTE | 2019-09-03 07:19 | PC.NURSE ---
09/02 0640 Son in room. He does not want any further treatment. Dr Cheng suggests starting fentanyl nd versed for pt comfort and he is agreeable. Fentanyl and Versed started as charted.
--- NOTE | 2019-09-03 08:01 | ADMIMU ---
Addendum entered by Kiya Cope RN 09/03/19 08:04: Pt transferred at 0600 09/03/19 Original Note: This patient, Rachel Parker, was transferred to ICU status and placed in ICU 8.
--- NOTE | 2019-09-03 08:03 | PC.NURSE ---
09/03/19 Pt asystole with absence of heart sounds at 0733, Dr Atkinson officially calls TOD at 0737 after vent disconnection. Son home with patient belongings. He will call with the name of the senior living.
--- NOTE | 2019-09-03 17:03 | PM.DDS ---
Discharge Sum: Prov Provider Primary care physician: Vargas Rocha, Admitting provider: Justine Forte MD Consults: 09/02/19 19:54 Consult to Physician Routine Comment: Consulting Provider: sIaiah Medeiros Reason for consultation: ABD PELVIS CT CANCER SUSPECTED Has provider been notified: Yes Discharge Sum: Summary Date and Time Date of admission: 09/01/19 18:14 Date of : 09/03/19 Time of : 07:37 Summary Details: Patient is 73-year-old female presented emergency department with multiple complaints most persisting complaint is abdominal pain and shortness of breath CT scan of the chest showed 1. Lobulated 6.9 cm right lower lobe mass, compatible with bronchogenic carcinoma until proven otherwise. There are probable metastases to the mediastinum, right hilum, right pleural surface, liver, left adrenal gland as well as possible local spread of tumor. And CT scan of abdomen showed: 1. Innumerable liver masses, right pleural nodularity, right hilar lymphadenopathy, abdominal lymphadenopathy, and body wall masses, consistent with metastatic disease. Ultrasound-guided core needle biopsy of a liver mass is recommended. 2. Masses in the kidneys, which may be hemorrhagic cysts and/or metastatic disease. 3. Adrenal masses, which may be adenomas and/or metastatic disease. 4. Thickening of the endometrial complex suspicious for endometrial carcinoma. Also patient has a elevated liver enzymes and patient had ultrasound-guided liver biopsy, concern the patient infection decide malignancy patient is being treated vancomycin Zosyn and azithromycin patient seen by oncologist and further recommendation to follow, continue to monitor the patient and hydrate. on 09/03/2019 patient went into cardiac arrest cord was called and patient was resuscitated and intubated by paint spray tender, enter family decided to withdraw care patient was extubated and on 09/03/2019 07:37 Additional Data Confirmation of as documented by pronouncing clinician: no pulse, no respirations, no heart sounds and pupils fixed and dilated Family: at bedside Additional persons at bedside: clinical social worker Attending/PCP notified?: Yes Attending physician: Justine Forte MD Was code activated?: No Autopsy requested?: No electric powerline examiner notified?: Yes Organ bank notified?: No Advance directives: Yes Hospice patient?: No
--- NOTE | 2019-09-30 14:18 | WPDONCPN ---
Progress Note: A/P - Time Spent With Patient Total time spent is greater than 50% in coordination of care (as documented) at patient's floor/unit and/or counseling patient: less than 15 minutes (Patient before being seen) Subjective Interval history: Patient before being seen. Exam Vital signs: Temp Pulse Resp BP Pulse Ox 36.3 C L 60 12 107/25 L 99 09/03/19 05:40 09/03/19 07:20 09/03/19 07:20 09/03/19 07:20 09/03/19 08:35 PN: Objective Data - Labs CBC & Chem 7: 09/03/19 05:30 09/03/19 05:30
== END 2019-09-03 07:37 | disposition expired | DRG 208 ==
LOC: ANHED 18:07 → ANH3MED 18:46 → ANHICU 09-03 06:41
PROVIDERS: Emergency Medicine; Internal Medicine; Physician Assistant; Admitting Provider Family Medicine; Emergency Provider Emergency Medicine; PCP Internal Medicine Endocrinology, Diabetes & Metabolism; Visit Provider Family Medicine
DX: C34.31 Malignant neoplasm of lower lobe, right bronchus or lung (principal); C78.7 Secondary malignant neoplasm of liver and intrahepatic bile duct; C78.1 Secondary malignant neoplasm of mediastinum; C78.2 Secondary malignant neoplasm of pleura; C77.2 Secondary and unspecified malignant neoplasm of intra-abdominal lymph nodes; C77.1 Secondary and unspecified malignant neoplasm of intrathoracic lymph nodes; C79.72 Secondary malignant neoplasm of left adrenal gland; E87.2 Acidosis; Z66 Do not resuscitate; E86.0 Dehydration; R74.0 Nonspecific elevation of levels of transaminase and lactic acid dehydrogenase [LDH]; G47.33 Obstructive sleep apnea (adult) (pediatric); E11.22 Type 2 diabetes mellitus with diabetic chronic kidney disease; N18.3 Chronic kidney disease, stage 3 (moderate); Z79.4 Long term (current) use of insulin; I48.0 Paroxysmal atrial fibrillation; F17.210 Nicotine dependence, cigarettes, uncomplicated; E03.9 Hypothyroidism, unspecified; Z20.828 Contact with and (suspected) exposure to other viral communicable diseases; I46.9 Cardiac arrest, cause unspecified
CPT/HCPCS: 31500; 36415; 36600; 47000; 51701; 70450; 71046; 71250; 74177; 76942; 80053; 81001; 82375; 82378; 82805; 82948; 83036; 83050; 83605; 83690; 83735; 84439; 84443; 84480; 85025; 85055; 85610; 85730; 87040; 87635; 88307; 94002; 96361; 96365; 96366; 96375; 96376; 99291; A9270; C9803; J0456; J0696; J2250; J2270; J2405; J2543; J3010; J3370; J7030; Q9967; U0003